=== PATIENT | male | born 1955 | race Two or more races ===

== ENCOUNTER 2018-06-13 21:51 | Emergency (ER) | payer MEDICAID ==
[~2018-06-13] VITALS: Ht 177.8 cm; Wt 68.0 kg
[2018-06-13 21:55] VITALS: BP 129/86
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
[2018-06-13 22:27] LABS: ANION GAP 9 mmol/L (5-15); BLOOD UREA NITROGEN 12 mg/dL (7-18); CALCIUM 9.1 MG/DL (8.5-10.1); CARBON DIOXIDE 28 MMOL/L (21-32); CHLORIDE 102 MMOL/L (98-107); CREATININE 1.4 MG/DL (0.55-1.30); POTASSIUM 3.7 MMOL/L (3.5-5.1); SODIUM 139 MMOL/L (136-145)
[2018-06-13 22:31] LABS: ALANINE AMINOTRANSFERASE 24 U/L (12-78); ALBUMIN 3.9 G/DL (3.4-5.0); ALBUMIN/GLOBULIN RATIO 0.8 (1.0-2.7); ALKALINE PHOSPHATASE 261 U/L (46-116); ASPARTATE AMINO TRANSFERASE 39 U/L (15-37); BILIRUBIN,TOTAL 0.8 MG/DL (0.2-1.0)
[2018-06-13 22:32] LABS: BASOPHILS % (AUTO) 1.8 % (0.0-2.0); HEMATOCRIT 47.5 % (42.0-52.0); HEMOGLOBIN 15.3 G/DL (14.2-18.0); LYMPHOCYTES % (AUTO) 21.9 % (20.0-45.0); MEAN CORPUSCULAR VOLUME 98 FL (80-99); MONOCYTES % (AUTO) 5.2 % (1.0-10.0); PLATELET COUNT 234 K/UL (150-450); RED BLOOD COUNT 4.82 M/UL (4.70-6.10); WHITE BLOOD COUNT 9.2 K/UL (4.8-10.8)
[2018-06-13] MEDS ORDERED: DiphenhydrAMINE 50mg/ml Inj IM ONE (22:45)
[2018-06-13] MEDS ORDERED: Haloperidol 5mg/ml Inj IM ONE (22:45)
[2018-06-14 01:00] VITALS: BP 117/75
[2018-06-14 01:10] VITALS: BP 117/75
--- NOTE | 2018-06-14 01:10 | NUR ---
ER DISCHARGE NOTE: Patient is cleared to be discharged per ERMD,on room air, with stable vital signs. pt was given dc instruction, pt was able to verbalize understanding, pt id band and iv site removed without complications. pt is able to ambulate with steady gait. pt took all belongings. pt offered food and clothing and asked if he want to stay overnight to the ed but pt refused, risk and benefits explained but pt still verbalized that he want to go out now. pt left the ed with stable vital signs.
== END 2018-06-14 01:10 | disposition home or self-care (01) ==
LOC: EDBD 21:51 → CANBEDREQ 22:19 → EMR 22:26
DX: F29 Unspecified psychosis not due to a substance or known physiological condition (principal); F14.10 Cocaine abuse, uncomplicated; F16.10 Hallucinogen abuse, uncomplicated
CPT/HCPCS: 36415; 80053; 80307; 80329; 82962; 85025; 96372; 99284; J1200; J1630